=== PATIENT | female | born 1970 ===

== ENCOUNTER 2018-11-24 02:46 | Emergency (ER) | payer SELFPAY ==
[2018-11-24 03:11] VITALS: RESP 16
[2018-11-24] MEDS ORDERED: Sodium Chloride 0.9% 1,000 ML IV STA (03:22)
[2018-11-24 03:56] LABS: BASO # 0.1 K/uL (0.0-0.2); BASO % 0.7 % (0.0-2.0); EOS # 0.1 K/uL (0.0-0.7); EOS % 1.4 % (0.0-4.0); HEMOGLOBIN 10.5 g/dL (12.0-16.0); LYMPH # 2.4 K/uL (1.0-4.3); LYMPH % 27.7 % (20.0-40.0); MEAN PLATELET VOLUME 9.9 fl (7.2-11.7); MONO # 0.8 K/uL (0.0-0.8); MONO % 9.1 % (0.0-10.0); NEUT # 5.2 K/uL (1.8-7.0); NEUT % 61.1 % (50.0-75.0); NRBC % 0.1 % (0.0-0.0); RBC 3.73 Mil/uL (3.80-5.20); RED CELL DISTRIBUTION WIDTH 17.3 % (11.5-14.5); WHITE BLOOD COUNT 8.5 K/uL (4.8-10.8)
[2018-11-24 04:03] LABS: ALB/GLOB RATIO 1.2 (1.0-2.1); ALT/SGPT 18 U/L (9-52); AST/SGOT 20 U/L (14-36); BLOOD UREA NITROGEN 18 mg/dl (7-17); CALCIUM 9.6 mg/dL (8.4-10.2); GFR NON-AFRICAN AMERICAN > 60
[2018-11-24] MEDS ORDERED: Alum-Mag Hydrox-Simethicone Susp (30 mL) PO STA (04:05)
--- NOTE | 2018-11-24 04:07 | ED PDOC ---
HPI: Chest Pain Time Seen by Provider: 11/24/18 03:10 Chief Complaint (Nursing): Chest Pain Chief Complaint (Provider): Chest Pain History Per: Patient History/Exam Limitations: no limitations Onset/Duration Of Symptoms: Days (x 1 1/2 weeks) Current Symptoms Are (Timing): Still Present Quality: "Pain" Associated Symptoms: Nausea, Dyspnea, Other (vomiting) Additional Complaint(s): 48 year old female with a history of hypothyroidism and lupus (no meds) presents to the ED for evaluation of intermittent nausea and vomiting associated with chest pain, shortness of breath and anxiety. Patient also reports epigastric arsenio n and pain to the right scapular area worse with inhalation. She offers no other complaints. PMD: none provided Past Medical History Reviewed: Historical Data, Nursing Documentation, Vital Signs Vital Signs: Last Vital Signs Temp 97.8 F 11/24/18 03:02 Pulse 59 L 11/24/18 03:02 Resp 16 11/24/18 03:02 BP 147/88 11/24/18 03:02 Pulse Ox 97 11/24/18 03:02 - Medical History PMH: Hypothyroidism Other PMH: Lupus - Surgical History Surgical History: Appendectomy Other surgeries: hammertoe, left wrist, breast cystectomy - Family History Family History: States: Unknown Family Hx - Home Medications Home Medications: Ambulatory Orders Medication Instructions Recorded Famotidine [Pepcid] 20 mg PO Q12 #14 tab 11/24/18 Ondansetron ODT [Zofran ODT] 4 mg PO Q6 PRN #8 odt 11/24/18 - Allergies Allergies/Adverse Reactions: Allergies Allergy/AdvReac Type Severity Reaction Status Date / Time No Known Allergies Allergy Verified 11/24/18 03:12 Review of Systems ROS Statement: Except As Marked, All Systems Reviewed And Found Negative Cardiovascular: Positive for: Chest Pain Respiratory: Positive for: Shortness of Breath Gastrointestinal: Positive for: Nausea, Vomiting, Abdominal Pain Psych: Positive for: Anxiety Physical Exam - Reviewed Nursing Documentation Reviewed: Yes Vital Signs Reviewed: Yes - Physical Exam Appears: Positive for: Non-toxic, No Acute Distress Head Exam: Positive for: ATRAUMATIC, NORMAL INSPECTION, NORMOCEPHALIC Skin: Positive for: Normal Color, Warm, Dry Eye Exam: Positive for: EOMI, Normal appearance, PERRL Neck: Positive for: Normal, Painless ROM, Supple Cardiovascular/Chest: Positive for: Regular Rate, Rhythm. Negative for: Murmur Respiratory: Positive for: Normal Breath Sounds. Negative for: Respiratory Distress Gastrointestinal/Abdominal: Positive for: Tenderness (mild epigastric ). Negative for: Mass, Guarding, Rebound Back: Positive for: Normal Inspection. Negative for: L CVA Tenderness, R CVA Tenderness Extremity: Positive for: Normal ROM (x 4). Negative for: Deformity Neurological/Psych: Positive for: Awake, Alert, Normal Tone, Oriented. Negative for: Motor/Sensory Deficits - Laboratory Results Result Diagrams: 11/24/18 03:40 11/24/18 03:40 Lab Results: Total Bilirubin 0.5 mg/dl (0.2-1.3) 11/24/18 03:40 AST 20 U/L (14-36) 11/24/18 03:40 ALT 18 U/L (9-52) 11/24/18 03:40 Alkaline Phosphatase 48 U/L (38-126) 11/24/18 03:40 Total Protein 7.4 G/DL (6.3-8.2) 11/24/18 03:40 Albumin 4.0 g/dL (3.5-5.0) 11/24/18 03:40 Globulin 3.3 gm/dL (2.2-3.9) 11/24/18 03:40 Albumin/Globulin Ratio 1.2 (1.0-2.1) 11/24/18 03:40 - ECG O2 Sat by Pulse Oximetry: 97 (RA) Pulse Ox Interpretation: Normal Medical Decision Making Medical Decision Makin:22 Impression: 48 year old female with chest and abdominal pain in setting of known lupus Initial Plan: --EKG --CMP --CBC --TSH --Troponin --ESR --Ativan 1 mg PO --Lidocaine 10 ml PO --Maalox 30 ml PO --Pepcid 20 mg IVP --Toradol 30 mg IV --Zofran 4 mg IV 05:55 Patient reports improvement of symptoms. Labs reviewed and reveal no clinically significant abnormalities with the exception of elevated TSH levels which are consistent with patient's hypothyroidism. She is stable for discharge. Diagnosis is gastritis. Scribe Attestation: Documented by Christy Prakash, acting as a scribe Stephany Salazar MD Provider Scribe Attestation: All medical record entries made by the Scribe were at my direction and personally dictated by me. I have reviewed the chart and agree that the record accurately reflects my personal performance of the history, physical exam, medical decision making, and the department course for this patient. I have also personally directed, reviewed, and agree with the discharge instructions and disposition Disposition - Clinical Impression Clinical Impression: Hypothyroidism, Gastritis - Patient ED Disposition Is Patient to be Admitted: No - Disposition Referrals: [facility] [Outside] Disposition: Routine/Home Disposition Time: 05:55 Condition: STABLE Prescriptions: Famotidine [Pepcid] 20 mg PO Q12 #14 tab Ondansetron ODT [Zofran ODT] 4 mg PO Q6 PRN #8 odt PRN Reason: Nausea/Vomiting Instructions: Hypothyroidism (Underactive Thyroid), Gastritis Forms: [employer] (Khmer)
[2018-11-24] MEDS ORDERED: Alum-Mag Hydrox-Simethicone Susp (30 mL) ONE (04:08)
[2018-11-24 06:33] VITALS: BP 132/81; PULSE 63; TEMP 98.2; O2SAT 99
--- NOTE | 2018-11-24 08:21 | CARD ---
APPROVED REPORT Date of service: 11/24/2018 EKG Measurement Heart [id number] <Conclusion> Normal sinus rhythm Poor R wave progression in Precordial leads Abnormal ECG
== END 2018-11-24 06:33 | disposition home or self-care (01) ==
LOC: H.ER 02:46
DX: E03.9 Hypothyroidism, unspecified (principal); K29.70 Gastritis, unspecified, without bleeding; M32.9 Systemic lupus erythematosus, unspecified; Z79.899 Other long term (current) drug therapy
CPT/HCPCS: 80053; 84443; 84484; 85025; 85651; 93005; 99284; J1885; J2405; J7030

== ENCOUNTER 2018-11-24 16:30 | Emergency (ER) | payer SELFPAY ==
[2018-11-24 16:41] VITALS: TEMP 98.9; O2SAT 100
[2018-11-24] MEDS ORDERED: Sodium Chloride 0.9% 1,000 ML IV SCH (17:00)
--- NOTE | 2018-11-24 17:08 | ED PDOC ---
HPI: Chest Pain Additional History Per: Patient Additional Complaint(s): 48 y/o F with PMH of Hypothyroid (not on meds), Lupus and hysterectomy comes to the ER second time in last 24 hours c/o chest pain/Epigastric pain and syncope. Patient reports on and off chest pain for last 1 week, radiating to epigastric and back, sharp in nature, 10/10 and changes with respiration, associated with nausea, vomiting and anxiety. Patient was seen in ED this morning for same problem, d/c home after workup and prescription for pepcid and Zofran. Patient reports she went home got dizzy, fell down and hit her head. Patient reports dizziness, headache, nausea, blurred vision and anxiety. Denies any vomiting since morning, no diarrhea, abdominal pain, dysuria, weakness, numbness/tingling. Reports she moved here this week from [place]. PMH: Hypothyroid (not on meds), Lupus and hysterectomy PSH: Hysterectomy Allg: NKDA Meds: NONE SH: Social alcohol, denies any drug or smoking FH: Unknown, patient is Adopted <Alan John - Last Filed: 11/24/18 19:19> <Sha Cooper III - Last Filed: 11/25/18 12:26> Time Seen by Provider: 11/24/18 16:43 Chief Complaint (Nursing): Chest Pain Against Medical Advice - AMA Patient Left Against Medical Advice: The patient declines admission to the hospital and wishes to leave the Emergency Department. This action is against my medical advice. This decision was made with informed refusal. The patient was told that admission to the hospital is necessary. Explanation of the reasons why were discussed. The risks of leaving were explained to the patient and include, but are not limited to, worsening of known or currently unknown conditions, permanent disability and from undiagnosed or untreated conditions. The patient has the capacity to make this informed decision and understands my explanation of the current medical problem and risks of leaving. The patient voluntarily accepts these risks and signed an AMA form documenting our conversation. The patient was given the opportunity to ask questions and reconsider. The patient was encouraged to return to the Emergency Department at any time for further care. <Sha Cooper III - Last Filed: 11/25/18 12:26> Supervising Attending Note - Attestation: I have personally seen and examined this patient.: Yes I have fully participated in the care of the patient.: Yes I have reviewed all pertinent clinical information: Yes - Notes: Notes:: pt seen and examined w resident agree w findings diagnostics and prior chart reviewed <Sha Cooper III - Last Filed: 11/25/18 12:26> Past Medical History Vital Signs: Last Vital Signs Temp 98.9 F 11/24/18 16:35 Pulse 85 11/24/18 16:35 Resp 16 11/24/18 16:35 BP 114/69 11/24/18 16:35 Pulse Ox 100 11/24/18 16:35 - Medical History PMH: Hypothyroidism - Surgical History Surgical History: Appendectomy - Family History Family History: States: Unknown Family Hx <Alan John - Last Filed: 11/24/18 19:19> Vital Signs: Last Vital Signs Temp 98.9 F 11/24/18 16:35 Pulse 83 11/24/18 20:35 Resp 20 11/24/18 20:35 BP 111/72 11/24/18 20:35 Pulse Ox 100 11/24/18 20:35 <Sha Cooper III - Last Filed: 11/25/18 12:26> - Home Medications Home Medications: Ambulatory Orders Medication Instructions Recorded Cyclobenzaprine [Cyclobenzaprine 10 mg PO TID PRN #15 tab 11/24/18 HCl] Famotidine [Pepcid] 20 mg PO Q12 #14 tab 11/24/18 Ondansetron ODT [Zofran ODT] 4 mg PO Q6 PRN #8 odt 11/24/18 - Allergies Allergies/Adverse Reactions: Allergies Allergy/AdvReac Type Severity Reaction Status Date / Time No Known Allergies Allergy Verified 11/24/18 16:35 LANA Risk Score for UA/NSTEMI - LANA Risk Score Age > 64: NO 3 or more CAD Risk Factors: NO Known CAD (Stenosis greater than 50%): NO Aspirin use in past 7 days: NO Severe Angina: NO EKG ST changes greater than 0.5mm: NO Positive Cardiac Marker: NO LANA Score: 0 Risk %: 5% <Alan John - Last Filed: 11/24/18 19:19> Curb-65 Severity Score - CURB-65 Severity Score Confusion: No Bun >19mg/dl (>7mmol/L): No Respiratory Rate greater than/equal to 30: No Systolic BP <90 or Diastolic BP less than/equal 60mmHg: No Age >64: No Curb-65 Score: 0 Percentage 30-day mortality: 0.6% <Stewart Johniza - Last Filed: 11/24/18 19:19> Wells Criteria for PE - Wells Criteria for Pulmonary Embolism Clinical Signs and Symptoms of DVT: No P.E is #1 Diagnosis, or Equally Likely: No Heart Rate >100: No Immobilization at least 3 days;Surgery previous 4 weeks: No Previous, objectively diagnosed PE or DVT: No Hemoptysis: No Malignancy w/treatment within 6 months, or palliative: No Total Score: 0 <JohnAlan - Last Filed: 11/24/18 19:19> Review of Systems Constitutional: Negative for: Fever, Chills, Sweats Eyes: Positive for: Vision Change. Negative for: Pain, Conjunctivae Inflammation ENT: Negative for: Ear Pain, Ear Discharge, Nose Pain, Nose Discharge Cardiovascular: Positive for: Chest Pain, Palpitations. Negative for: Orthopnea, Paroxysmal Noc. Dyspnea Respiratory: Positive for: Shortness of Breath. Negative for: Cough, Hemoptysis Gastrointestinal: Positive for: Nausea. Negative for: Vomiting, Abdominal Pain Genitourinary Female: Negative for: Dysuria, Frequency Musculoskeletal: Negative for: Neck Pain Skin: Negative for: Rash Neurological: Negative for: Weakness, Numbness, Incoordination Psych: Negative for: Anxiety <John,Alan - Last Filed: 11/24/18 19:19> Physical Exam - Physical Exam Appears: Positive for: No Acute Distress Head Exam: Positive for: ATRAUMATIC, NORMAL INSPECTION, NORMOCEPHALIC Skin: Positive for: Normal Color Eye Exam: Positive for: Normal appearance, EOMI, PERRL ENT: Positive for: Normal ENT Inspection Neck: Positive for: Normal Cardiovascular/Chest: Positive for: Regular Rate, Rhythm. Negative for: Chest Non Tender, Murmur, Bradycardia, Tachycardia Respiratory: Positive for: Normal Breath Sounds. Negative for: Decreased Breath Sounds, Accessory Muscle Use, Crackles, Rales, Rhonchi, Wheezing Gastrointestinal/Abdominal: Positive for: Normal Exam, Soft. Negative for: Tenderness Back: Positive for: Normal Inspection. Negative for: L CVA Tenderness, R CVA Tenderness Extremity: Positive for: Normal ROM. Negative for: Tenderness, Pedal Edema Neurological/Psych: Positive for: Awake, Alert, Normal Tone, Oriented, Gait (normal), beverage distiller II-XII. Negative for: Lethargic, Facial Droop <Alan John - Last Filed: 11/24/18 19:19> - Laboratory Results Result Diagrams: 11/24/18 17:36 11/24/18 17:36 - ECG O2 Sat by Pulse Oximetry: 100 - Progress ED Course And Treament: A/P: 48 y/o F with PMH of Hypothyroid (not on meds), Lupus and hysterectomy comes to the ER second time in last 24 hours c/o chest pain/Epigastric pain and syncope. - CBC - CMP - Trop - Urine drug - Urine preg - Lipase - TSH/F4 - PT/INR - EKG - CXR - CT head w/o CONT - Zofran - Pepcid - 1L IVF Case discussed with Dr. Cooper, agrees with plan Labs and imagine reviewed Patient is c/o chest pain and anxiety: Give ativan and asa Care transfer to Dr. Kenneth Cooper to follow up with patient and rest Blood work Re-evaluation Time: 19:18 Condition: Re-examined <Alan John - Last Filed: 11/24/18 19:19> - Laboratory Results Result Diagrams: 11/24/18 17:36 11/24/18 17:36 Lab Results: PT 11.3 Seconds (9.8-13.1) 11/24/18 17:36 INR 1.0 11/24/18 17:36 APTT 31.4 Seconds (25.6-37.1) 11/24/18 17:36 Troponin I < 0.0120 ng/mL (0.00-0.120) 11/24/18 17:36 Total Bilirubin 1.1 mg/dl (0.2-1.3) 11/24/18 17:36 AST 22 U/L (14-36) 11/24/18 17:36 ALT 16 U/L (9-52) 11/24/18 17:36 Alkaline Phosphatase 45 U/L (38-126) 11/24/18 17:36 Total Protein 7.2 G/DL (6.3-8.2) 11/24/18 17:36 Albumin 3.9 g/dL (3.5-5.0) 11/24/18 17:36 Globulin 3.3 gm/dL (2.2-3.9) 11/24/18 17:36 Albumin/Globulin Ratio 1.2 (1.0-2.1) 11/24/18 17:36 Lipase 49 U/L (23-300) 11/24/18 17:36 <Sha Cooper III - Last Filed: 11/25/18 12:26> Medical Decision Making Medical Decision Making: labs/ ekg/ CT report brain reviewed xanax 0.25mg given with some relief. Given recurrent ED visits with persistent symptoms, recommendation for hospitalization made, however patient refuses, states she needs to attend to her dog. She requested xanax Rx prior to leaving, but explained not indicated and high addictive potential. 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 States she will return for further workup when she is able. <Sha Cooper III - Last Filed: 11/25/18 12:26> Disposition - Disposition Disposition Time: 19:20 <Alan John - Last Filed: 11/24/18 19:19> <Sha Cooper III - Last Filed: 11/25/18 12:26> - Clinical Impression Clinical Impression: Chest pain, Gastritis - Disposition Condition: STABLE Additional Instructions: Return to ER / hospital for continued workup and testing at any time. You left hospital against medical advice today, admission was recommended. Instructions: Chest Pain, Leaving Against Medical Advice Forms: [employer] (Grenadian)
--- NOTE | 2018-11-24 17:26 | RAD ---
Date of service: 11/24/2018 PROCEDURE: CHEST RADIOGRAPH, 1 VIEW HISTORY: Chest pain COMPARISON: None available. FINDINGS: LUNGS: Clear. PLEURA: No pneumothorax or pleural fluid seen. CARDIOVASCULAR: No aortic atherosclerotic calcification present. Normal. OSSEOUS STRUCTURES: No significant abnormalities. VISUALIZED UPPER ABDOMEN: Normal. OTHER FINDINGS: None. IMPRESSION: No active disease.
[2018-11-24 17:44] LABS: BASO # 0.1 K/uL (0.0-0.2); BASO % 0.8 % (0.0-2.0); EOS # 0.1 K/uL (0.0-0.7); EOS % 1.1 % (0.0-4.0); HEMOGLOBIN 10.9 g/dL (12.0-16.0); LYMPH # 1.7 K/uL (1.0-4.3); LYMPH % 25.3 % (20.0-40.0); MEAN CELL VOLUME 85.2 fl (81.0-99.0); MEAN CORPUSCULAR HEMOGLOBIN 28.1 pg (27.0-31.0); MEAN PLATELET VOLUME 9.7 fl (7.2-11.7); MONO # 0.5 K/uL (0.0-0.8); MONO % 7.4 % (0.0-10.0); NEUT # 4.5 K/uL (1.8-7.0); NEUT % 65.4 % (50.0-75.0); NRBC % 0.1 % (0.0-0.0); RBC 3.87 Mil/uL (3.80-5.20); RED CELL DISTRIBUTION WIDTH 17.8 % (11.5-14.5); WHITE BLOOD COUNT 6.9 K/uL (4.8-10.8)
[2018-11-24 17:47] LABS: PROTHROMBIN TIME 11.3 Seconds (9.8-13.1)
[2018-11-24 17:50] LABS: PARTIAL THROMBOPLASTIN TIME 31.4 Seconds (25.6-37.1)
[2018-11-24 17:55] LABS: ALB/GLOB RATIO 1.2 (1.0-2.1); ALBUMIN 3.9 g/dL (3.5-5.0); ALT/SGPT 16 U/L (9-52); AST/SGOT 22 U/L (14-36); BLOOD UREA NITROGEN 13 mg/dl (7-17); CALCIUM 9.5 mg/dL (8.4-10.2); GFR NON-AFRICAN AMERICAN > 60; LIPASE 49 U/L (23-300)
[2018-11-24 18:05] LABS: BARBITURATES, UR NEGATIVE (NEGATIVE); BENZODIAZEPINES, UR NEGATIVE (NEGATIVE); OPIATES, UR NEGATIVE (NEGATIVE); PHENCYCLIDINE, UR NEGATIVE (NEGATIVE)
--- NOTE | 2018-11-24 18:16 | CT ---
Date of service: 11/24/2018 PROCEDURE: CT HEAD WITHOUT CONTRAST. HISTORY: Syncope COMPARISON: Not available TECHNIQUE: Axial computed tomography images were obtained through the head/brain without intravenous contrast. Radiation dose: Total exam DLP = 839.93 mGy-cm. This CT exam was performed using one or more of the following dose reduction techniques: Automated exposure control, adjustment of the mA and/or kV according to patient size, and/or use of iterative reconstruction technique. FINDINGS: HEMORRHAGE: No intracranial hemorrhage. BRAIN: No mass effect or edema. No atrophy or chronic microvascular ischemic changes. VENTRICLES: Unremarkable. No hydrocephalus. CALVARIUM: Unremarkable. PARANASAL SINUSES: Minimal chronic left maxillary sinusitis. MASTOID AIR CELLS: Unremarkable as visualized. No inflammatory changes. OTHER FINDINGS: None. IMPRESSION: Minimal chronic left maxillary sinusitis. No intracranial mass, hemorrhage or evidence of acute infarct.
[2018-11-25 00:09] VITALS: BP 111/72; PULSE 83; RESP 20
--- NOTE | 2018-11-25 11:16 | CARD ---
APPROVED REPORT Date of service: 11/24/2018 EKG Measurement Heart [id number] <Conclusion> Normal sinus rhythm Normal ECG
== END 2018-11-24 20:00 | disposition left against medical advice (07) ==
LOC: H.ER 16:30
DX: R07.9 Chest pain, unspecified (principal); K29.70 Gastritis, unspecified, without bleeding; E03.9 Hypothyroidism, unspecified; M32.9 Systemic lupus erythematosus, unspecified; Z79.899 Other long term (current) drug therapy
CPT/HCPCS: 70450; 71045; 80053; 81025; 83690; 84439; 84443; 84484; 85025; 85610; 85730; 93005; 96361; 96374; 96375; 99285; G0480; J2405; J7030